=== PATIENT | male | born 1980 | race Caucasian/White ===

== ENCOUNTER 2019-03-17 19:23 | Emergency (ER) | payer MEDICAID ==
[~2019-03-17] VITALS: Ht 175.3 cm; Wt 81.6 kg
[2019-03-17 19:35] VITALS: BP 155/93
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
[2019-03-17] MEDS ORDERED: CLINDAMYCIN 600 MG/4 ML VIAL IM ONE (20:55)
[2019-03-17] MEDS ORDERED: SULFAMETH/TRIMETH DS 800/160MG 1 TAB PO ONE (20:55)
[2019-03-17] MEDS ORDERED: NEOMYCIN/POLYMYXIN/BACITRACIN 0.9 GM/1 PKT TP ONE (21:00)
[2019-03-17 21:12] VITALS: BP 145/95
--- NOTE | 2019-03-17 21:13 | NUR ---
Patient discharged with v/s stable. Written and verbal after care instructions given and explained. Patient alert, oriented and verbalized understanding of instructions. Ambulatory with steady gait. All questions addressed prior to discharge. ID band removed. Patient advised to follow up with PMD. Rx of bactrim, mortrin given. Patient educated on indication of medication including possible reaction and side effects. Opportunity to ask questions provided and answered.
== END 2019-03-17 21:12 | disposition home or self-care (01) ==
LOC: MED 19:23
DX: L03.116 Cellulitis of left lower limb (principal); S81.802A Unspecified open wound, left lower leg, initial encounter; X58.XXXA Exposure to other specified factors, initial encounter; Y93.9 Activity, unspecified; Y92.89 Other specified places as the place of occurrence of the external cause; Y99.8 Other external cause status
CPT/HCPCS: 96372; 99283; J3490

== ENCOUNTER 2019-03-18 10:48 | Emergency (ER) | payer MEDICAID ==
[~2019-03-18] VITALS: Ht 175.3 cm; Wt 81.6 kg
[2019-03-18 11:02] VITALS: BP 132/86
--- NOTE | 2019-03-18 12:03 | NUR ---
PT TAKEN TO BED 11.
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
[2019-03-18] MEDS ORDERED: NEOMYCIN/POLYMYXIN/BACITRACIN 0.9 GM/1 PKT TP ONE ×2 (14:09→14:15)
[2019-03-18] MEDS ORDERED: DRY DRESSING MC SCH (14:15)
[2019-03-18 14:20] VITALS: BP 107/71
--- NOTE | 2019-03-18 14:20 | NUR ---
Patient discharged with v/s stable. Written and verbal after care instructions given and explained. Patient alert, oriented and verbalized understanding of instructions. Ambulatory with steady gait. All questions addressed prior to discharge. ID band removed. Patient advised to follow up with PMD. Rx of BACITRICIN 500UNITS/G, KEFLEX 500 MG given. Patient educated on indication of medication including possible reaction and side effects. Opportunity to ask questions provided and answered. DRESSING DONE, INSTRUCTED TO CHANGE DRESSING DAILY AT HOME. PT VERBALISED UNDERSTANDING.
[2019-03-19] MEDS ORDERED: BACITRACIN ZINC/POLYMYXIN B OINT 30 GM TUBE TP SCH (09:00)
== END 2019-03-18 14:20 | disposition home or self-care (01) ==
LOC: MED 10:48
DX: S81.802A Unspecified open wound, left lower leg, initial encounter (principal); S01.01XA Laceration without foreign body of scalp, initial encounter; R42 Dizziness and giddiness; Y09 Assault by unspecified means; Y93.89 Activity, other specified; Y92.89 Other specified places as the place of occurrence of the external cause; Y99.8 Other external cause status
CPT/HCPCS: 70450; 99284

== ENCOUNTER 2019-03-21 14:34 | Emergency (ER) | payer MEDICAID ==
[~2019-03-21] VITALS: Ht 175.3 cm; Wt 84.9 kg
[2019-03-21 14:58] VITALS: BP 136/74
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
--- NOTE | 2019-03-21 15:10 | NUR ---
WOUND CARE LT LOWER LEG. WOUND BED IS CLEAN. NO SIGNS OF INFECTION. NO OTHER COMPLAINTS. NO PAIN. HX-NONE MED-NONE TET-2019 PAIN 0/10
--- NOTE | 2019-03-21 15:49 | NUR ---
DR GOLD AT BEDSIDE
[2019-03-21] MEDS ORDERED: NEOMYCIN/POLYMYXIN/BACITRACIN 0.9 GM/1 PKT TP ONE (16:05)
--- NOTE | 2019-03-21 16:20 | NUR ---
Patient discharged with v/s stable. Written and verbal after care instructions given and explained. Patient alert, oriented and verbalized understanding of instructions. Ambulatory with steady gait. All questions addressed prior to discharge. ID band removed. Patient advised to follow up with PMD. Rx of AFRIN given. Patient educated on indication of medication including possible reaction and side effects. Opportunity to ask questions provided and answered.D/C TO THE STREETS (HOMELESS). HOMELESS RESOURCES GIVEN. FOOD PACKET GIVEN. PT HAS CLOTHING. HOMELESS WAIVER SIGNED.
[2019-03-21 16:21] VITALS: BP 129/85
== END 2019-03-21 16:20 | disposition home or self-care (01) ==
LOC: MED 14:34
DX: S81.802D Unspecified open wound, left lower leg, subsequent encounter (principal); S01.01XD Laceration without foreign body of scalp, subsequent encounter; Z59.0 Homelessness; X58.XXXD Exposure to other specified factors, subsequent encounter
CPT/HCPCS: 99283

== ENCOUNTER 2019-03-25 18:50 | Emergency (ER) | payer MEDICAID ==
[~2019-03-25] VITALS: Ht 175.3 cm; Wt 81.6 kg
[2019-03-25 19:25] VITALS: BP 139/80
--- NOTE | 2019-03-25 19:28 | NUR ---
TO LOBBY A/W BED AMBULATORY
--- NOTE | 2019-03-25 21:53 | NUR ---
PT CALLED IN THE LOBBY/OUTSIDE, NO RESPONSE.
--- NOTE | 2019-03-25 21:53 | NUR ---
PATIENT LEFT WITHOUT BEING SEEN BY DR. LU. NO FURTHER CARE PROVIDED FOR PATIENT.
--- NOTE | 2019-03-25 21:58 | NUR ---
CALLED FOR THE SECOND TIME NO RESPONSE
--- NOTE | 2019-03-25 22:03 | NUR ---
CALLED FOR THE THIRD TIME NO RESPONSE
== END 2019-03-25 21:53 | disposition left against medical advice (07) ==
LOC: MED 18:50
DX: L02.416 Cutaneous abscess of left lower limb (principal); Z53.21 Procedure and treatment not carried out due to patient leaving prior to being seen by health care provider